=== PATIENT | female | born 1960 | race Caucasian/White ===

== ENCOUNTER 2019-07-11 11:06 | Emergency (ER) | payer OTHER ==
[2019-07-11 13:56] VITALS: BP 126/83
--- NOTE | 2019-07-11 13:58 | UC ---
Respiratory Complaint HPI - HPI Summary HPI Summary: 58 year old female with TOb use several years ago, lives with who smokes in the house, presents with cough, chest tightness. no fever, chills. no ear pain, + sinus pressure at times, mild throat pain. Cough severe at times. No PMH, no MEds. - History of Current Complaint Chief Complaint: UCRespiratory Stated Complaint: CHEST CONGESTION, AND COUGH Time Seen by Provider: 07/11/19 13:40 Hx Obtained From: Patient ?: No Onset/Duration: Sudden Onset, Lasting Days, Still Present Severity Initially: Moderate Severity Currently: Severe Pain Intensity: 10 Pain Scale Used: 0-10 Numeric Character: Cough: Nonproductive Aggravating Factors: Exertion, Deep Breaths, Recumbent Position Associated Signs And Symptoms: Positive: Nasal Congestion. Negative: Fever, Chills, Dizziness, Calf Pain, Calf Swelling, Edema, URI - Allergies/Home Medications Allergies/Adverse Reactions: Allergies Allergy/AdvReac Type Severity Reaction Status Date / Time No Known Allergies Allergy Verified 07/11/19 11:15 Home Medications: Home Medications Albuterol inh POWDER (NF) [Proair Respiclick] 1 puff .ROUTE DAILY 07/11/19 [ History Confirmed 07/11/19] Lisinopril TAB* [Prinivil TAB 10 MG*] 1 tab PO DAILY 07/11/19 [History Confirmed 07/11/19] Omeprazole 1 tab PO DAILY 07/11/19 [History Confirmed 07/11/19] PARoxetine HCL TAB* [Paxil TAB*] 1 tab PO DAILY 07/11/19 [History Confirmed 01/22] buPROPion SR TAB* [Wellbutrin SR TAB*] 1 tab PO DAILY 07/11/19 [History Confirmed 07/11/19] traZODone TAB* [Desyrel TAB*] 1 tab PO DAILY 07/11/19 [History Confirmed ] PMH/Surg Hx/FS Hx/Imm Hx Previously Healthy: Yes - denies resp dx - Surgical History Surgical History: Yes Surgery Procedure, Year, and Place: ankle neck wrists abd - Family History Known Family History: Positive: Non-Contributory - Social History Alcohol Use: Occasionally Substance Use Type: None Smoking Status (MU): Former Smoker Review of Systems All Other Systems Reviewed And Are Negative: Yes Constitutional: Positive: Fatigue. Negative: Chills ENT: Positive: Nasal Discharge, Sinus Congestion, Sinus Pain/Tenderness. Negative: Dental Pain, Sore Throat, Ear Ache Respiratory: Positive: Shortness Of Breath, Cough Motor: Positive: Negative Is Patient Immunocompromised?: No Physical Exam Triage Information Reviewed: Yes Appearance: No Pain Distress, Well-Nourished, Ill-Appearing - mild Vital Signs: Initial Vital Signs Temp 98.1 F 07/11/19 11:11 Pulse 80 07/11/19 11:11 Resp 18 07/11/19 11:11 BP 126/79 07/11/19 11:11 Pulse Ox 98 07/11/19 11:11 Vital Signs Reviewed: Yes Eyes: Positive: Conjunctiva Clear ENT: Positive: Pharynx normal, TMs normal, Sinus tenderness. Negative: TM bulging, TM dull, TM red, Tonsillar swelling, Tonsillar exudate, Uvula midline Neck: Positive: Supple, Nontender, No Lymphadenopathy. Negative: Nuchal Rigidity, Enlarged Nodes @ Respiratory: Positive: Chest non-tender, No respiratory distress, No accessory muscle use, Decreased breath sounds - b/l lower lobes, Rhonchi, Wheezing - b/l lower lobes. Negative: Normal breath sounds, Respiratory distress Cardiovascular: Positive: RRR, No Murmur Neurological Exam: Normal Respiratory Course/Dx - Course Course Of Treatment: CXR- + for COPD Acute bronchitis in patient with COPD, 2nd hand smoke exposure - Steroid (prednisone taper): 07/11-07/13- 30mg 07/14- 07/15- 20mg 07/16- 10mg - Augmentin as prescribed - Increase fluid intake - Albuterol as needed - Differential Dx/Diagnosis Differential Diagnosis/HQI/PQRI: Bronchitis, Lower Resp Infection, Sinusitis Provider Diagnosis: COPD (chronic obstructive pulmonary disease), Bronchitis Discharge ED - Sign-Out/Discharge Documenting (check all that apply): Patient Departure All imaging exams completed and their final reports reviewed: Yes - Discharge Plan Condition: Good Disposition: HOME Prescriptions: Amoxicillin/Clavulanate TAB* [Augmentin TAB 875*] 875 mg PO BID #14 tab predniSONE TAB* [Deltasone 10 MG TAB*] 10 mg PO .SEE TAP #14 tab Patient Education Materials: Acute Bronchitis (ED), Bronchospasm (ED), Wheezing (ED) Forms: *Work Release Referrals: Jeniffer Boyle [Primary Care Provider] - Additional Instructions: - Steroid (prednisone taper): 07/11-07/13- 30mg 07/14- 07/15- 20mg 07/16- 10mg - Augmentin as prescribed - Increase fluid intake - Albuterol as needed - Billing Disposition and Condition Condition: GOOD Disposition: Home
== END 2019-07-11 14:38 | disposition home or self-care (01) ==
LOC: UCEAST 11:06
DX: J44.9 Chronic obstructive pulmonary disease, unspecified (principal); Z87.891 Personal history of nicotine dependence
CPT/HCPCS: 71046; 99212; G0463